=== PATIENT | female | born 1945 | race Caucasian/White ===

== ENCOUNTER 2016-08-03 23:07 | Inpatient (IN) | payer MEDICARE, OTHER ==
[~2016-08-03 23:07] MED LIST: ETOMIDATE 40 MG/20 ML VIAL IVP ONE; LIDOCAINE JELLY 2% 5 ML TUBE TOP ONE; SUCCINYLCHOLINE 200 MG/10 ML VIAL IVP ONE
[2016-08-03] MEDS ORDERED: IPRATROPIUM/ALBUTEROL 3 ML NEB INH STA (23:29)
[2016-08-03] MEDS ORDERED: methylPREDNISolone SUCCINATE 125 MG/2 ML VIAL IVP STA (23:30)
[2016-08-03] MEDS ORDERED: methylPREDNISolone SUCCINATE 125 MG/2 ML VIAL IVP ONE (23:37)
[2016-08-03] MEDS ORDERED: IPRATROPIUM/ALBUTEROL 3 ML NEB INH ONE (23:40)
[2016-08-04] MEDS ORDERED: ALBUTEROL NEB 2.5 MG/3 ML INH STA (01:05)
[2016-08-04] MEDS ORDERED: ALBUTEROL NEB 2.5 MG/3 ML INH ONE ×2 (01:09→09:07)
[2016-08-04] MEDS ORDERED: ACETAMINOPHEN 325 MG TABLET PO PRN (02:52)
[2016-08-04] MEDS ORDERED: ONDANSETRON 4 MG/2 ML VIAL IVP PRN (02:52)
[2016-08-04] MEDS ORDERED: SODIUM CHLORIDE FLUSH 0.9% 10 ML SYRINGE IVP PRN (02:52)
[2016-08-04] MEDS ORDERED: ZOLPIDEM 5 MG TABLET PO PRN (02:52)
[2016-08-04] MEDS ORDERED: HYDROcod/ACETAM 5/325 MG TABLET PO PRN (02:52)
[2016-08-04] MEDS ORDERED: IPRATROPIUM/ALBUTEROL 3 ML NEB INH PRN (02:52)
[2016-08-04] MEDS ORDERED: PROCHLORPERAZINE 10 MG/2 ML VIAL IVP PRN (02:52)
[2016-08-04] MEDS ORDERED: AZITHROMYCIN 250 MG TABLET PO SCH (04:00)
[2016-08-04] MEDS: IPRATROPIUM/ALBUTEROL 3 ML NEB INH SCH ×5 (04:00→19:10)
[2016-08-04] MEDS: methylPREDNISolone SUCCINATE 40 MG/ML VIAL IVP SCH ×2 (05:33→13:58)
[2016-08-04] MEDS: SODIUM CHLORIDE FLUSH 0.9% 10 ML SYRINGE IVP SCH ×3 (05:33→16:06)
[2016-08-04] MEDS ORDERED: PANTOPRAZOLE 40 MG TABLET PO SCH (07:00)
[2016-08-04] MEDS: LORazepam 2 MG/ML SYRINGE IVP PRN ×4 (07:49→22:18)
[2016-08-04] MEDS ORDERED: ENOXAPARIN 40 MG/0.4 ML SYRINGE SUBQ SCH (09:00)
[2016-08-04] MEDS ORDERED: POLYETHYLENE GLYCOL 3350 17 GM PACKET PO SCH (09:00)
[2016-08-04] MEDS ORDERED: MORPHINE 2 MG/ML SYRINGE IVP PRN (16:09)
[2016-08-04] MEDS ORDERED: ALBUTEROL NEB 2.5 MG/3 ML INH PRN (16:13)
[2016-08-04] MEDS ORDERED: MAGNESIUM SULFATE 2 GM in SODIUM CHLORIDE 0.9% 50 ML IV SCH (17:55)
[2016-08-04] MEDS ORDERED: ALBUTEROL NEB 2.5 MG/3 ML INH SCH (17:59)
[2016-08-04] MEDS ORDERED: PROPOFOL 1000 MG/100 ML 100 ML IV ONE (20:46)
[2016-08-04] MEDS ORDERED: CHLORHEXIDINE GLUCONATE 15 ML UDC PO SCH ×2 (21:00)
[2016-08-04] MEDS ORDERED: PROPOFOL 1000 MG/100 ML 100 ML IV SCH (21:00)
[2016-08-04] MEDS ORDERED: LORazepam 2 MG/ML SYRINGE IVP SCH ×2 (21:45→22:33)
[2016-08-05] MEDS ORDERED: PANTOPRAZOLE 40 MG VIAL IVP SCH ×2 (07:00)
== END 2016-08-04 22:15 | disposition short-term general hospital (02) | DRG 208 ==
PROC: 5A1935Z Respiratory Ventilation, Less than 24 Consecutive Hours (ICD-10-PCS; principal; 2016-08-04)
PROC: 0BH17EZ Insertion of Endotracheal Airway into Trachea, Via Natural or Artificial Opening (ICD-10-PCS; 2016-08-04)
DX: J96.01 Acute respiratory failure with hypoxia (principal); J45.901 Unspecified asthma with (acute) exacerbation; J96.02 Acute respiratory failure with hypercapnia; M06.9 Rheumatoid arthritis, unspecified; C50.912 Malignant neoplasm of unspecified site of left female breast; J20.8 Acute bronchitis due to other specified organisms; Z78.1 Physical restraint status; Z87.891 Personal history of nicotine dependence; J45.909 Unspecified asthma, uncomplicated; C50.919 Malignant neoplasm of unspecified site of unspecified female breast

== ENCOUNTER 2016-10-08 11:11 | Outpatient (CLI) | payer MEDICARE, OTHER ==
[2016-10-08 11:30] LABS: BASOPHILS # (AUTO) 0.1 10^3/uL (0.0-0.1); BASOPHILS % (AUTO) 1.9 %; EOSINOPHILS # (AUTO) 0.1 10^3/uL (0.0-0.7); EOSINOPHILS % (AUTO) 3.9 %; HCT - HEMATOCRIT 32.3 % (37.0-47.0); HGB - HEMOGLOBIN 10.9 g/dL (12.0-16.0); LYMPHOCYTES # (AUTO) 0.9 10^3/uL (1.5-3.5); LYMPHOCYTES % (AUTO) 26.9 %; MEAN CORPUSCULAR HEMOGLOBIN 29.5 pg (27.0-31.0); MEAN CORPUSCULAR HGB CONC 33.6 g/dL (32.0-36.0); MEAN CORPUSCULAR VOLUME 87.6 fL (81.0-99.0); MEAN PLATELET VOLUME 6.6 fL (7.9-10.8); MONOCYTES # (AUTO) 0.4 10^3/uL (0.0-1.0); MONOCYTES % (AUTO) 10.6 %; NEUTROPHILS % (AUTO) 56.7 %; RED BLOOD COUNT 3.69 10^6/uL (4.20-5.40); RED CELL DISTRIBUTION WIDTH 13.9 % (12.0-15.0); UNCORRECTED WHITE BLOOD COUNT 3.5 x10^3/uL; WHITE BLOOD COUNT 3.5 x10^3/uL (4.8-10.8)
[2016-10-08 11:43] LABS: ALBUMIN/GLOBULIN RATIO 0.9 (1.0-2.2); BILIRUBIN,TOTAL 0.3 mg/dL (0.2-1.0); CALCIUM 8.8 mg/dL (8.5-10.3); CREATININE 0.7 mg/dL (0.4-1.0); MAGNESIUM 1.8 mg/dL (1.7-2.8); POTASSIUM 3.2 mmol/L (3.5-5.0); TOTAL PROTEIN 7.1 g/dL (6.7-8.2)
== END 2016-10-08 11:12 | disposition home or self-care (01) ==
LOC: LAB 11:11
PROVIDERS: ATTEND Internal Medicine Hematology & Oncology
DX: C50.412 Malignant neoplasm of upper-outer quadrant of left female breast (principal); Z17.0 Estrogen receptor positive status [ER+]
CPT/HCPCS: 36415; 80053; 83735; 85025

== ENCOUNTER 2020-03-19 08:00 | Outpatient (CLI) | payer MEDICARE, OTHER | END 2020-03-19 23:59 | disposition home or self-care (01) | LOC: LAB.R 08:00 | PROVIDERS: ATTEND Physician Assistant | DX: J01.00 Acute maxillary sinusitis, unspecified (principal); Z20.828 Contact with and (suspected) exposure to other viral communicable diseases ==

== ENCOUNTER 2020-06-18 11:29 | Outpatient (CLI) | payer MEDICARE, OTHER ==
--- NOTE | 2020-06-18 12:20 | XRAY Report ---
PROCEDURE: Chest 2 View X-Ray INDICATIONS: SHORTNESS OF BREATH TECHNIQUE: 2 view(s) of the chest. COMPARISON: 08/04/2016 FINDINGS: Surgical changes and devices: Port-A-Cath. Lungs and pleura: No pleural effusions or pneumothorax. Lungs are clear. Mediastinum: Mediastinal contours are normal. Heart size is normal. Bones and chest wall: No suspicious bony abnormalities. Soft tissues appear unremarkable. Old compr ession fractures of approximately T7, T8, T9, T11, T12, and L1. IMPRESSION: 1. 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 2. No evidence acute pulmonary process. Reviewed by: Mehran Lipscomb MD on 06/18/2020 11:18 AM [facility] Approved by: Mehran Lipscomb MD on 06/18/2020 11:18 AM [facility] Station ID: [id number]
== END 2020-06-18 23:59 | disposition home or self-care (01) ==
LOC: DI.S 11:29
PROVIDERS: ATTEND Physician Assistant Medical
DX: R06.02 Shortness of breath (principal)

== ENCOUNTER 2022-06-23 07:00 | Outpatient (CLI) | payer MEDICARE, OTHER ==
--- NOTE | 2022-06-23 14:10 | XRAY Report ---
PROCEDURE: Chest 2 View X-Ray INDICATIONS: PRODUCTIVE COUGH TECHNIQUE: 2 views of the chest were acquired. COMPARISON: June 18, 2020 FINDINGS: Surgical changes and devices: Surgical clips bilateral axilla.. Lungs and pleura: No pleural effusions or pneumothorax. Lungs are clear. Mediastinum: Mediastinal contours are normal. Heart size is normal. Bones and chest wall: Multiple wedge deformities of the visualized spine. Soft tissues appear unrema rkable. IMPRESSION: No acute cardiopulmonary findings. Stable compression fractures of the visualized spine. Reviewed by: Prasanth Nova MD on 06/23/2022 1:09 PM [facility] Approved by: Prasanth Nova MD on 06/23/2022 1:09 PM [facility] Station ID: [id number]
== END 2022-06-23 07:01 | disposition home or self-care (01) ==
LOC: DI.S 07:00
PROVIDERS: ATTEND Physician Assistant
DX: R05.8 Other specified cough (principal)

== ENCOUNTER 2023-11-02 10:46 | Emergency (ER) | payer MEDICARE, OTHER ==
--- NOTE | 2023-11-02 11:42 | ED Physician Documentation ---
History of Present Illness - Stated complaint Stated Complaint: RT LEG LAC - Chief complaint Chief Complaint: Laceration - History obtained from History obtained from: Patient - History of Present Illness Timing: Prior to arrival - Additonal information Additional information: Patient is a 78-year-old female presenting to the emergency department with right leg laceration to right anterior leg. She notes she was getting out of her car and cut her leg on something she initially did not notice it felt blood dripping down her leg wrapped it and came to the emergency department. She denies any numbness or tingling in her extremities no feelings of foreign body. She is unsure of her last tetanus. She denies any history of neuropathy. She denies being on any blood thinners. PD PAST MEDICAL HISTORY - Past Medical History Past Medical History: Yes Cardiovascular: None Respiratory: Asthma Endocrine/Autoimmune: None GI: None : None HEENT: Chronic vision loss Psych: None Musculoskeletal: Rheumatoid arthritis Derm: None - Past Surgical History Past Surgical History: Yes /[employer]STRU[employer]: Mastectomy - Present Medications Home Medications: Ambulatory Orders Medication Instructions Recorded Confirmed Albuterol Sulf [Ventolin Hfa 1 - 2 puffs INH Q4H PRN 08/03/16 08/04/16 Inhaler] Alendronate Sodium 70 mg PO Q7D 08/04/16 08/04/16 Fluticasone Propion/Salmeterol 1 puffs INH BID 08/04/16 08/04/16 [Advair 250-50 Diskus] - Allergies Allergies/Adverse Reactions: Allergies Allergy/AdvReac Type Severity Reaction Status Date / Time No Known Drug Allergies Allergy Verified 11/02/23 10:57 - Social History Does the pt smoke?: No Smoking Status: Never smoker Does the pt drink ETOH?: Yes Does the pt have substance abuse?: No - Immunizations Immunizations are current?: No - POLST Patient has POLST: No PD ED PE NORMAL - Vitals Vital signs reviewed: Yes - General General: Alert and oriented X 3 - HEENT HEENT: Atraumatic - Neck Neck: Supple, no meningeal sign - Cardiac Cardiac: RRR, No murmur, No gallop, No rub, Strong equal pulses - Respiratory Respiratory: No respiratory distress, Clear bilaterally - Derm Derm: Other (Right leg shows no significant swelling sensation intact in digits 1 through 5 with full range of motion. Good capillary refill. PT and DP pulses 2+. Full range of motion of right ankle intact with strength equal bilaterally 5 out of 5. Laceration approximately 3 cm in size noted to right anteri) Results - Vitals Vitals: Vital Signs - 24 hr 11/02/23 10:54 Temperature 36.2 C L Heart Rate 83 Respiratory 20 Rate Blood Pressure 139/85 H O2 Saturation 96 Oxygen O2 Source Mechanical ventilator Procedures - Laceration (location) Lower extremity right Distal Wound type: Curved Neurovascular status: Sensory intact, Motor intact, Vascular intact Tendon involvement: Tendon intact (Superficial wound fat layer exposed but no signs of tendon injury or fascia injury.) Anesthesia: Lidocaine 1% with epi Wound preparation: Irrigated copiously NS Skin layer closure: Nylon, Sutures - enter # (5) Other: Patient tolerated well, No complications, Neurovascular intact, Tetanus booster given PD Medical Decision Making - ED course Complexity details: d/w patient ED course: Patient is a 78-year-old female presenting to the emergency department with right leg laceration after cutting it when getting out of the car. She initially did not know it was bleeding but felt it dripping down her leg wrapped it and came straight to the emergency department patient unsure of last tetanus does not appear to have any records at this time. Her leg on physical examination is neurovascularly intact distally she sustained laceration to lateral pretibial area with no significant bleeding on arrival. Wound copiously irrigated here in the emergency department no signs of foreign bodies no significant contamination. 5 sutures were placed with 5-0 nylon see procedure note above. Patient tolerated well. Patient's tetanus was updated here in the emergency department. Discussed at length with patient keep wound clean and dry keep elevated ice to prevent dehiscence of wound watch for redness swelling fevers worsening pain numbness or tingling to extremity. Patient will rewrap in [address] Neosporin on it at home. Patient feels safe to go home with strict return precautions as above. Departure - Departure Disposition: 01 Home, Self Care Clinical Impression: Laceration, Laceration of right lower leg Condition: Good Instructions: ED Laceration All Comments: You had laceration repaired on your right leg here in the emergency department keep it elevated ice to prevent wound from opening up or dehiscing. Please follow-up in 7 to 10 days for suture removal watch for redness swelling di scharge from the wound fevers increased pain or redness around the wound. Forms: PCP List
[2023-11-02] MEDS: TETANUS/DIPHTHERIA/PERTUSSIS 0.5 ML SYRINGE IM ONE (11:50)
[2023-11-02] MEDS: LIDOCAINE 1%-EPI 1:100000 20 ML MDV SUBQ STA (11:50)
[2023-11-02 13:26] VITALS: BP 130/80; O2SAT 98
== END 2023-11-02 13:12 | disposition home or self-care (01) ==
LOC: ED 10:46
DX: S81.811A Laceration without foreign body, right lower leg, initial encounter (principal); W26.8XXA Contact with other sharp object(s), not elsewhere classified, initial encounter; Z23 Encounter for immunization; M06.9 Rheumatoid arthritis, unspecified
CPT/HCPCS: 12002; 90471; 99283